=== PATIENT | female | born 1975 | race Caucasian/White ===

== ENCOUNTER 2023-06-29 10:13 | Emergency (ER) | payer OTHER ==
[2023-06-29] MEDS: KETOROLAC 15 MG/ML 1 ML VIAL IVP STA ×2 (10:50→13:35)
[2023-06-29 10:51] VITALS: RESP 18
--- NOTE | 2023-06-29 11:07 | ED ---
ENT HPI - General Chief complaint: Dental/Oral Stated complaint: Infection in mouth Time Seen by Provider: 06/29/23 10:19 Source: patient, RN notes reviewed Mode of arrival: ambulatory Limitations: no limitations - History of Present Illness Initial comments: 48-year-old female presents emergency department chief complaint of right-sided facial swelling, mild swelling. Patient states she started the other day with pain and discomfort. Patient was started on clindamycin at urgent care states the swelling has worsened she states that there is fullness under her tongue. She denies any difficulty swallowing difficulty breathing no fevers or chills d enies any trauma denies any lesions or sores. - Related Data Previous Rx's Medication Instructions Recorded Ketorolac [Toradol] 10 mg PO Q8HR #15 tab 06/29/23 Allergies Allergy/AdvReac Type Severity Reaction Status Date / Time ciprofloxacin [From Cipro] Allergy Hallucinati Verified 06/29/23 10:18 ons Review of Systems ROS Statement: Those systems with pertinent positive or pertinent negative responses have been documented in the HPI. ROS Other: All systems not noted in ROS Statement are negative. Past Medical History Past Medical History: Hyperlipidemia History of Any Multi-Drug Resistant Organisms: None Reported Past Surgical History: Cholecystectomy, Tubal Ligation Past Psychological History: Bipolar Smoking Status: Current every day smoker Past Alcohol Use History: Occasional Past Drug Use History: Marijuana General Exam Limitations: no limitations General appearance: alert, in no apparent distress Head exam: Present: atraumatic, normocephalic, normal inspection Eye exam: Present: normal appearance, PERRL, EOMI. Absent: scleral icterus, conjunctival injection, periorbital swelling ENT exam: Present: mucous membranes moist, TM's normal bilaterally. Absent: normal oropharynx (Right sided submandibular swelling, tenderness and sublingual swelling noted) Neck exam: Present: tenderness, full ROM, lymphadenopathy. Absent: normal inspection, meningismus Respiratory exam: Present: normal lung sounds bilaterally. Absent: respiratory distress, wheezes, rales, rhonchi, stridor Cardiovascular Exam: Present: regular rate, normal rhythm, normal heart sounds. Absent: systolic murmur, diastolic murmur, rubs, gallop, clicks GI/Abdominal exam: Present: soft, normal bowel sounds. Absent: distended, tenderness, guarding, rebound, rigid Course Vital Signs 06/29/23 06/29/2324 10:15 10:56 12:42 Temperature 98.7 F 97.8 F Pulse Rate 78 74 72 Respiratory 18 18 18 Rate Blood Pressure 102/60 127/66 121/71 O2 Sat by Pulse 100 100 100 Oximetry 06/29/23 13:39 Temperature 97.6 F Pulse Rate 74 Respiratory 18 Rate Blood Pressure 116/68 O2 Sat by Pulse 100 Oximetry Medical Decision Making - Medical Decision Making Was pt. sent in by a medical professional or institution (, [facility], [facility], urgent care, hospital, or halfway...) When possible be specific @ -No Did you speak to anyone other than the patient for history (EMS, parent, family, police, friend...)? What history was obtained from this source @ -No Did you review nursing and triage notes (agree or disagree)? Why? @ -I reviewed and agree with nursing and triage notes Were old charts reviewed (outside hosp., previous admission, EMS record, old EKG, old radiological studies, urgent care reports/EKG's, halfway records)? Report findings @ -No old charts were reviewed Differential Diagnosis (chest pain, altered mental status, abdominal pain women, abdominal pain men, vaginal bleeding, weakness, fever, dyspnea, syncope, headache, dizziness, GI bleed, back pain, seizure, CVA, palpatations, mental health, musculoskeletal)? @ -Dental infection, facial abscess, sialoadenitis EKG interpreted by me (3pts min.). @ -None X-rays interpreted by me (1pt min.). @ -None done CT interpreted by me (1pt min.). @ -CT soft tissue neck showing evidence of right submandibular and sublingual swelling no focal abscess but more consistent with sialoadenitis U/S interpreted by me (1pt. min.). @ -None done What testing was considered but not performed or refused? (CT, X-rays, U/S, labs )? Why? @ -None What meds were considered but not given or refused? Why? @ -None Did you discuss the management of the patient with other professionals (professionals i.e. [facility], [facility], lab, RT, psych nurse, social media director, brush head maker, teacher, special forces officer, ed case manager)? Give summary @ -No Was smoking cessation discussed for >3mins.? @ -No Was critical care preformed (if so, how long)? @ -No Were there social determinants of health that impacted care today? How? (Homelessness, low income, unemployed, alcoholism, drug addiction, transportation, low edu. Level, literacy, decrease access to med. care, intermediate, rehab)? @ -No Was there de-escalation of care discussed even if they declined (Discuss DNR or withdrawal of care, Hospice)? DNR status @ -No What co-morbidities impacted this encounter? (DM, HTN, Smoking, COPD, CAD, Cancer, CVA, ARF, Chemo, Hep., AIDS, mental health diagnosis, sleep apnea, morbid obesity)? @ -None Was patient admitted / discharged? Hospital course, mention meds given and route, prescriptions, significant lab abnormalities, going to OR and other pertinent info. @ -[Charge patient laboratory studies unremarkable patient will continue her clindamycin patient has acute sialadenitis I do not identify current stone obstructing this may be from noncalcified obstruction versus infection patient will have close follow-up return parameters discussed. We discussed using sour candies to help stimulate saliva production. Undiagnosed new problem with uncertain prognosis? @ -No Drug Therapy requiring intensive monitoring for toxicity (Heparin, Nitro, Insulin, Cardizem)? @ -No Were any procedures done? @ -No Diagnosis/symptom? @ -sialadentitis Acute, or Chronic, or Acute on Chronic? @ -Acute Uncomplicated (without systemic symptoms) or Complicated (systemic symptoms)? @ -Uncomplicated Side effects of treatment? @ -No Exacerbation, Progression, or Severe Exacerbation? @ -No Poses a threat to life or bodily function? How? (Chest pain, USA, SC, pneumonia, PE, COPD, DKA, ARF, appy, cholecystitis, CVA, Diverticulitis, Homicidal, Suicidal, threat to staff... and all critical care pts) @ -No - Lab Data Result diagrams: 06/29/23 10:58 06/29/23 10:58 Lab Results 06/29/23 06/29/23 06/29/23 Range/Units 10:58 10:58 10:58 WBC 13.1 H (3.8-10.6) k/uL RBC 4.19 (3.80-5.40) m/uL Hgb 12.8 (11.4-16.0) gm/dL Hct 39.7 (34.0-46.0) % MCV 94.8 (80.0-100.0) fL MCH 30.6 (25.0-35.0) pg MCHC 32.3 (31.0-37.0) g/dL RDW 14.3 (11.5-15.5) % Plt Count 223 (150-450) k/uL MPV 9.1 Neutrophils % 77 % Lymphocytes % 14 % Monocytes % 7 % Eosinophils % 1 % Basophils % 0 % Neutrophils # 10.1 H (1.3-7.7) k/uL Lymphocytes # 1.9 (1.0-4.8) k/uL Monocytes # 0.9 (0-1.0) k/uL Eosinophils # 0.1 (0-0.7) k/uL Basophils # 0.0 (0-0.2) k/uL Sodium 140 (137-145) mmol/L Potassium 4.1 (3.5-5.1) mmol/L Chloride 106 (98-107) mmol/L Carbon Dioxide 26 (22-30) mmol/L Anion Gap 8 mmol/L BUN 17 (7-17) mg/dL Creatinine 0.56 (0.52-1.04) mg/dL Est GFR (CKD-EPI)AfAm >90 (>60 ml/min/1.73 sqM) Est GFR (CKD-EPI)NonAf >90 (>60 ml/min/1.73 sqM) Glucose 89 (74-99) mg/dL Plasma Lactic Acid Sp 1.0 (0.7-2.0) mmol/L Calcium 9.3 (8.4-10.2) mg/dL Total Bilirubin 0.4 (0.2-1.3) mg/dL AST 25 (14-36) U/L ALT 22 (4-34) U/L Alkaline Phosphatase 65 (38-126) U/L Total Protein 6.5 (6.3-8.2) g/dL Albumin 3.8 (3.5-5.0) g/dL Disposition Clinical Impression: Sialoadenitis Disposition: HOME SELF-CARE Condition: Stable Instructions (If sedation given, give patient instructions): Sialoadenitis (ED) Additional Instructions: Please return to the Emergency Department if symptoms worsen or any other concerns. Prescriptions: Ketorolac [Toradol] 10 mg PO Q8HR #15 tab Is patient prescribed a controlled substance at d/c from ED?: No Referrals: Ana Suh MD [Primary Care Provider] - 1-2 days Time of Disposition: 13:07
[2023-06-29 11:26] LABS: Basophils % (A) 0 %; Eosinophils # (A) 0.1 k/uL (0-0.7); Eosinophils % (A) 1 %; HCT 39.7 % (34.0-46.0); HGB 12.8 gm/dL (11.4-16.0); Lymphocytes # (A) 1.9 k/uL (1.0-4.8); Lymphocytes % (A) 14 %; MCH 30.6 pg (25.0-35.0); MCHC 32.3 g/dL (31.0-37.0); MCV 94.8 fL (80.0-100.0); Mean Platelet Volume 9.1; Monocytes # (A) 0.9 k/uL (0-1.0); Monocytes % (A) 7 %; Neutrophils # (A) 10.1 k/uL (1.3-7.7); Neutrophils % (A) 77 %; Platelet Count 223 k/uL (150-450); RBC 4.19 m/uL (3.80-5.40); RDW 14.3 % (11.5-15.5); WBC 13.1 k/uL (3.8-10.6)
[2023-06-29 11:52] LABS: ALT 22 U/L (4-34); AST 25 U/L (14-36); African American GFR (CKD) >90 (>60 ml/min/1.73 sqM); Albumin 3.8 g/dL (3.5-5.0); Alkaline Phosphatase 65 U/L (38-126); Anion Gap 8 mmol/L; Blood Urea Nitrogen 17 mg/dL (7-17); Calcium 9.3 mg/dL (8.4-10.2); Carbon Dioxide 26 mmol/L (22-30); Chloride 106 mmol/L (98-107); Glucose 89 mg/dL (74-99); Non-African American GFR(CKD) >90 (>60 ml/min/1.73 sqM); Potassium 4.1 mmol/L (3.5-5.1); Sodium 140 mmol/L (137-145); Total Bilirubin 0.4 mg/dL (0.2-1.3); Total Protein 6.5 g/dL (6.3-8.2)
--- NOTE | 2023-06-29 12:28 | CT ---
EXAMINATION TYPE: CT soft tissue neck w con DATE OF EXAM: 06/29/2023 COMPARISON: HISTORY: Dental infection. RT lower, submandibular swelling CT DLP: 327.9 mGycm CONTRAST: CT scan of the neck is performed with IV Contrast, patient injected with 100 mL of Isovue 300. Contrast enhanced CT of the neck was performed from the skull base through the lung apices. AIRWAY: The supraglottic, glottic, and subglottic portions of the airway appear patent and free of mass. SALIVARY GLANDS: Fullness and slight asymmetry of the right submandibular gland relative to its left- sided counterpart and reflect changes of sialoadenitis. Surrounding strandy inflammatory changes note d. Correlate clinically. Parotid glands are unremarkable. THYROID GLAND: No nodules or masses seen. LYMPH NODES: Mildly prominent right internal jugular chain lymph node measuring 1.2 cm may be reactiv e in nature. LUNG APICES: No nodule or mass is seen. OTHER: Vascular structures are patent. No significant degenerative change of the cervical spine. So ft tissue swelling along the right mandibular region could be secondary to the aforementioned right-s ided possible submandibular sialoadenitis although dental cause is certainly a possibility although I do not see evidence for ductal cavities or periapical abscess. Correlate clinically. IMPRESSION: Soft tissue swelling along the right mandibular region could be secondary to the aforementioned righ t-sided possible submandibular sialoadenitis although dental cause is certainly a possibility althoug h I do not see evidence for dental caries or periapical abscess. Correlate clinically.
[2023-06-29] MEDS: cefTRIAXone IN SWFI 1,000 MG/10 ML SYRINGE IVP STA (13:34)
[2023-06-29 14:01] VITALS: BP 116/68; PULSE 74; TEMP 97.6
== END 2023-06-29 13:43 | disposition home or self-care (01) ==
LOC: EC 10:13
DX: K11.20 Sialoadenitis, unspecified (principal); F17.200 Nicotine dependence, unspecified, uncomplicated; Z88.1 Allergy status to other antibiotic agents
CPT/HCPCS: 36415; 80053; 83605; 85025; 70491; 99284; 96374; 96375; 96376; J0696; J1885; Q9967